=== PATIENT | male | born 1990 | race Caucasian/White ===

== ENCOUNTER 2017-10-02 16:19 | Emergency (ER) | payer BC ==
[2017-10-02 17:51] VITALS: BP 138/88
--- NOTE | 2017-10-02 18:16 | UC ---
UC General HPI - HPI Summary HPI Summary: PT C/O COUGH FOR ABOUT 3 MONTHS. HE ADMITS TO HX ASTHMA BUT NO TX. HE HAD "FLU" RECENTLY AND NOW HAS HEAD AND CHEST CONGESTION, BODY ACHES, FEVERISH AND ADMITS TO SOB AND WHEEZING. NO CP. - History of Current Complaint Chief Complaint: UCGeneralIllness Stated Complaint: SORE THROAT/ACHY NASAL CONGESTION Time Seen by Provider: 10/02/17 18:06 Hx Obtained From: Patient Onset/Duration: Gradual Onset Timing: Constant Pain Intensity: 4 Associated Signs & Symptoms: Positive: Cough, Dizziness, Fever, Headache, SOB, Wheezing. Negative: Chest Pain, Diarrhea, Dysuria, Nausea, Vomiting - Allergy/Home Medications Allergies/Adverse Reactions: Allergies Allergy/AdvReac Type Severity Reaction Status Date / Time MS Erythromycin Allergy Rash Verified 05/02/16 07:34 [Erythromycin] Home Medications: Home Medications Sertraline* [Zoloft*] 50 mg PO BID 10/02/17 [History Confirmed 10/02/17] PMH/Surg Hx/FS Hx/Imm Hx Respiratory History: Asthma - Surgical History Surgical History: None - Family History Known Family History: Positive: Hypertension - Social History Occupation: Employed Full-time Lives: With Family Alcohol Use: None Substance Use Type: None Smoking Status (MU): Never Smoked Tobacco - Immunization History Vaccination Up to Date: Yes Review of Systems Constitutional: Fever, Fatigue Skin: Negative Eyes: Negative ENT: Nasal Discharge, Sinus Congestion, Sinus Pain/Tenderness Respiratory: Shortness Of Breath, Cough Cardiovascular: Negative Gastrointestinal: Negative Genitourinary: Negative Motor: Negative Neurovascular: Negative Musculoskeletal: Myalgia Neurological: Negative Psychological: Negative Is Patient Immunocompromised?: No All Other Systems Reviewed And Are Negative: Yes Physical Exam Triage Information Reviewed: Yes Appearance: Well-Appearing Vital Signs: Initial Vital Signs Temp 97.7 F 10/02/17 17:44 Pulse 70 10/02/17 17:44 Resp 17 10/02/17 17:44 BP 138/88 10/02/17 17:44 Pulse Ox 99 10/02/17 17:44 Eyes: Positive: Conjunctiva Clear ENT: Positive: Pharynx normal, Nasal congestion, TMs normal. Negative: Sinus tenderness Neck: Positive: Supple, Nontender, No Lymphadenopathy Respiratory: Positive: No respiratory distress, Decreased breath sounds, Other: - COUGH IS CONGESTED. Cardiovascular: Positive: RRR, No Murmur, Pulses Normal Abdomen Description: Positive: Nontender, No Organomegaly, Soft Bowel Sounds: Positive: Present Musculoskeletal: Positive: ROM Intact Neurological: Positive: Alert Psychological: Positive: Age Appropriate Behavior Skin Exam: Normal Course/Dx - Course Course Of Treatment: HX C/W ASTHMA AND FLARE, URI FOLLOWING FLU SYMPTOMS. WILL TX FOR ASTHMA AND SECONDARY BACTERIAL INFECTION. PT HAS TAKEN AND TOLERATED ZITHROMAX IN PAST THUS WILL USE THAT. NEED FOR CLOSE F/U AND RECHECK BY PCP STRESSED. - Differential Dx - Multi-Symptom Provider Diagnoses: ASTHMA FALER, URI Discharge - Discharge Plan Condition: Stable Disposition: HOME Prescriptions: Albuterol HFA INHALER* [Ventolin HFA Inhaler*] 2 puff INH Q6H #1 mdi Azithromycin TAB* [Zithromax TAB (Z-ANTELMO) 250 mg #6 tabs] 2 tab PO .TODAY, THEN 1 DAILY #1 antelmo predniSONE TAB* [Deltasone TAB*] 40 mg PO DAILY 5 Days #10 tab Patient Education Materials: Asthma (ED), Upper Respiratory Infection (ED) Forms: *Work Release Referrals: Hans Davis MD [Primary Care Provider] - 5 Days
== END 2017-10-02 18:29 | disposition home or self-care (01) ==
LOC: UCCORT 16:19
DX: J45.909 Unspecified asthma, uncomplicated (principal); J06.9 Acute upper respiratory infection, unspecified; Z88.1 Allergy status to other antibiotic agents
CPT/HCPCS: 99212; G0463